=== PATIENT | male | born 1955 | race Caucasian/White ===

== ENCOUNTER 2020-01-29 14:15 | Emergency (ER) | payer OTHER, SELFPAY ==
--- NOTE | ~2020-01-29 | XR_ITS ---
EXAMINATION: XR elbow RT min 3V EXAM DATE: 01/29/2020 14:40 INDICATION: Initial encounter following injury, with pain of the right elbow. TECHNIQUE: Right elbow frontal, lateral , and oblique projections obtained and reviewed. There is no prior study for comparison. FINDINGS: Both the right olecranon and the radial head are completely posteriorly dislocated. There i s an ossific fracture fragment identified, with uncertain donor site but could be portion of the ulna coronoid process. No definite humeral or radial head fracture line identified. IMPRESSION: 1. Right ulnar, radial posterior dislocation at the elbow. 2. Small displaced fracture fragment, donor site uncertain. Reviewed, dictated and finalized at location A.
[2020-01-29 14:15] VITALS: BP 149/92; PULSE 79; RESP 20; TEMP 36.7; O2SAT 96
[2020-01-29] MEDS: ONDANSETRON INJ 4 MG/2 ML VIAL IV PUSH (14:22)
[2020-01-29] MEDS: HYDROmorphone HCL 2 MG/ML VIAL 0.5 MG IV PUSH ×2 (14:22→15:28)
[2020-01-29] MEDS: TETANUS,DIPHTHERIA,AC PERTUSSIS ADULT 0.5 ML (ADACEL) IM (14:22)
[2020-01-29] MEDS: SODIUM CHLORIDE 0.9% IV 1,000 ML 150 ML IV CONT (14:24)
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
[2020-01-29 15:45] VITALS: BP 144/84; PULSE 77; O2SAT 95
[2020-01-29 17:04] VITALS: BP 147/83
== END 2020-01-29 17:00 | disposition short-term general hospital (02) ==
PROVIDERS: Emergency Provider Emergency Medicine; PCP Family Medicine
DX: S53.104A Unspecified dislocation of right ulnohumeral joint, initial encounter (principal); T14.8XXA Other injury of unspecified body region, initial encounter; V19.9XXA Pedal cyclist (driver) (passenger) injured in unspecified traffic accident, initial encounter
CPT/HCPCS: 73080; 90471; 90715; 96361; 96374; 96375; 96376; 99283; 99285; J1170; J2405; J7030

== ENCOUNTER 2022-07-11 05:33 | Emergency (ER) | payer MEDICARE, SELFPAY ==
[2022-07-11 05:38] VITALS: BP 140/100; PULSE 110; RESP 18; TEMP 37.1; O2SAT 94
[2022-07-11 06:17] LABS: Add Urine Microscopic? YES; Bilirubin Urine Negative (Negative); Blood Urine Negative (Negative); Color Urine Light Yellow (Yellow); Glucose Urine UA 3+ (Negative); Ketones Urine Negative (Negative); Leukocyte Esterase Ur Trace (Negative); Nitrate Urine Negative (Negative); Protein Urine Negative (Negative); Urobilinogen Urine 0.2 mg/dL (0.2-1.0)
[2022-07-11 06:20] LABS: Appearance Urine Slightly Cloudy (Clear)
[2022-07-11 06:21] LABS: Bacteria Urine 3+ /hpf; RBC Urine None seen /hpf (0-2); WBC Urine 31-50 /hpf (0-3)
--- NOTE | 2022-07-11 06:39 | ED.GENADULT ---
HPI - General Adult General Chief complaint: Urogenital-Male Stated complaint: unable to go pee Time Seen by Provider: 07/11/22 05:57 Source: patient Mode of arrival: ambulatory Limitations: no limitations History of Present Illness HPI narrative: patient is a 66-year-old white male retired [employer] with a history difficulty urinating back since May of last year. Been followed by Wilfredo BRISCOE urologist in [facility]. He has had to have urinary catheterization about 3 times since then. Last saw the urology nurse practitioner 2 weeks ago and he started him on Flomax. It seemed like he was urinating better but last night started having more problems. Feels like he can not void all the time but has voided a couple times last night. Denies any discomfort just a sense of urgency and urinary frequency. Denies any hematuria or back pain or other symptoms. Including fever. He has a history of diabetes and hypertension. He does not really know what the urologist thinks his problem is. He said a he had a urodynamic test done but does not know the results of those tests. He is supposed to go back in 8 days and discuss results. Related Data Home Medications Medication Instructions Recorded Confirmed empagliflozin 25 mg tablet 25 mg PO DAILY 01/29/20 07/11/22 (Jardiance) glipizide 10 mg tablet, extended 10 mg PO DAILY 01/29/20 07/11/22 release 24 hr lisinopril 5 mg tablet 5 mg PO DAILY 01/29/20 07/11/22 metformin 1,000 mg tablet 1,000 mg PO BID 01/29/20 07/11/22 semaglutide 1 mg/dose (2 mg/1.5 1 mg subcut WEEKLY 01/29/20 07/11/22 mL) subcutaneous pen injector (Ozempic) simvastatin 40 mg tablet 40 mg PO HS 01/29/20 07/11/22 Allergies Allergy/AdvReac Type Severity Reaction Status Date / Time Penicillins Allergy Itching Verified 07/11/22 05:42 aspirin AdvReac Gastrointestinal Verified 07/11/22 05:42 Upset Review of Systems Constitutional: Constitutional: Reports no additional constitutional complaints Eyes: Eyes: Reports no additional eye complaints Cardiovascular: Cardiovascular: Reports no additional cardiovascular complaints Respiratory: Respiratory: Reports no additional respiratory complaints Gastrointestinal: Gastrointestinal: Reports no additional gastrointestinal complaints Genitourinary: Genitourinary: Reports no additional male genitourinary complaints, Reports as per HPI, Denies hematuria, Reports oliguria, Denies dysuria, Denies penile discharge, Denies testicular pain, Reports urinary frequency and Denies urinary incontinence Comments: He has a left-sided inguinal hernia but did not discuss this with any of his doctors in the past. Or the urologist. Musculoskeletal: Musculoskeletal: Reports no additional musculoskeletal complaints Neurologic: Reports system reviewed and no additional complaints, except as documented [facility] Past Medical History Medical History (Updated 07/11/22 @ 07:01 by Carlos A Sánchez MD) Anxiety Type 2 diabetes mellitus Social History Social History Smoking status: Never smoker Substance use: never Exam Narrative: White male appears in in no apparent distress. Oropharynx is clear, neck is supple no lymphadenopathy. lungs are clear heart is regular rate rhythm without murmurs gallops or rubs. Abdomen soft nontender no hepatosplenomegaly or masses no CVA tenderness no suprapubic tenderness. Male genitalia he has a left non reducible inguinal hernia. Testes appear normal size without masses. Penis appears normal. Extremities no cyanosis clubbing or edema Const: General: healthy appearing Nutritional Appearance: well nourished Orientation/consciousness: patient oriented x3 Limitations: no limitations Course Vital Signs Vital signs: Vital Signs Temperature 37.1 C 07/11/22 05:38 Pulse Rate 110 H 07/11/22 05:38 Respiratory Rate 18 07/11/22 05:38 Blood Pressure 140
[2022-07-11 07:23] VITALS: BP 124/88; PULSE 85; RESP 16; TEMP 36.2; O2SAT 99
== END 2022-07-11 07:31 | disposition home or self-care (01) ==
PROVIDERS: Emergency Provider Emergency Medicine; PCP Family Medicine
DX: N39.0 Urinary tract infection, site not specified (principal); E11.9 Type 2 diabetes mellitus without complications; F41.9 Anxiety disorder, unspecified; Z79.84 Long term (current) use of oral hypoglycemic drugs; Z79.899 Other long term (current) drug therapy
CPT/HCPCS: 81001; 99283